=== PATIENT | female | born 1975 | race Caucasian/White ===

== ENCOUNTER 2022-08-06 20:22 | Emergency (ER) | payer BC ==
[~2022-08-06] VITALS: Ht 162.6 cm; Wt 136.0 kg
[2022-08-06] VITALS (8 sets, daily range): BP systolic 115–144; BP diastolic 53–79
[~2022-08-06 20:22] MED LIST: ANUCORT-HC25 MG RE; BACTRIM DS1 TAB PO; BENZONATATE200 MG PO; COLACE100 MG PO; DOXYCYCL HYC100 MG PO; IBUPROFEN600 MG PO; LEVOTHYROXIN50 MCG PO; LISINOP/HCTZ1 TA1 PO; LOSARTAN/HCT1 TA2 PO; METFORMIN500 MG PO; MUCINEX600 MG PO; NAPROSYN500 MG PO; PAXIL40 MG PO; PRILOSEC20 MG PO; TAM75CAP PO; TYLENOL325 MG PO; ZITHROMAX250 MG PO
[2022-08-06 21:14] LABS: BASO% 0.3 % (0-3); EOS% 0.3 % (0-8); HEMOGLOBIN 12.9 g/dl (12.0-16.0); IMMATURE GRANULOCYTES 0.2 % (0.0-5.0); LYMPH% 14.4 % (15-41); MEAN CELL VOLUME 87.1 fL CALC (80.0-100.0); MEAN CORPUSCULAR HGB 28.8 pG CALC (26.0-32.0); MEAN CORPUSCULAR HGB CONC 33.1 g/dL CAL (32.0-36.0); MONO% 3.4 % (2-13); NEUT# 7.39 thou/uL (2.00-7.15); NEUT% 81.4 % (42-76); RED BLOOD COUNT 4.48 mill/uL (4.20-5.60); RED CELL DISTRI WIDTH 13.3 % (11.5-15.5)
[2022-08-06 21:25] LABS: ALKALINE PHOSPHATASE 66 u/l (38-126); BILIRUBIN, TOTAL 0.4 mg/dL (0.02-1.3); BUN 12 mg/dL (7-17); BUN/CREATININE RATIO 19 (12-20 (CALC)); CARBON DIOXIDE 29 mmol/l (22-30); CHLORIDE 101 mmol/l (95-108); CREATININE 0.6 mg/dL (0.5-1.0); GFR FOR AFR.AMER. > 60 ML/MIN (>=60 (CALC)); GFR OTHER RACES > 60 ML/MIN (>=60 (CALC)); LIPASE 69 u/l (23-300); SGOT/AST 27 u/l (14-36); SODIUM 138 mmol/l (137-146); TOTAL PROTEIN 7.2 g/dL (6.3-8.2)
[2022-08-06 21:27] LABS: D-DIMER 0.42 mg/L (0.19-0.60)
[2022-08-06 21:29] LABS: ANION GAP 12 (6-22 (CALC)); POTASSIUM 3.6 mmol/l (3.5-5.1)
[2022-08-06 21:30] LABS: ACT PARTIAL THROMBO TIME 27.2 SECONDS (20.0-32.5)
[2022-08-06] MEDS ORDERED: AMOXICILLIN500 MG PO (22:36)
== END 2022-08-06 22:50 | disposition home or self-care (01) | DRG 153 ==
LOC: ED 20:22
PROVIDERS: Family Medicine
DX: J02.0 Streptococcal pharyngitis (principal); R07.89 Other chest pain; I10 Essential (primary) hypertension; E11.9 Type 2 diabetes mellitus without complications; E78.00 Pure hypercholesterolemia, unspecified; E66.01 Morbid (severe) obesity due to excess calories; Z79.84 Long term (current) use of oral hypoglycemic drugs; Z20.822 Contact with and (suspected) exposure to COVID-19

== ENCOUNTER 2022-11-17 17:20 | Emergency (ER) | payer BC ==
[~2022-11-17] VITALS: Ht 162.6 cm; Wt 132.0 kg
[~2022-11-17 17:20] MED LIST changes: +AMOXICILLIN500 MG PO
[2022-11-17 18:56] VITALS: BP 145/83
== END 2022-11-17 18:57 | disposition home or self-care (01) | DRG 563 ==
LOC: ED 17:20
PROC: 2W3UXYZ Immobilization of Right Toe using Other Device (ICD-10-PCS; principal; 2022-11-17)
DX: S92.511A Displaced fracture of proximal phalanx of right lesser toe(s), initial encounter for closed fracture (principal); I10 Essential (primary) hypertension; E11.9 Type 2 diabetes mellitus without complications; E78.00 Pure hypercholesterolemia, unspecified; X58.XXXA Exposure to other specified factors, initial encounter; Z79.84 Long term (current) use of oral hypoglycemic drugs